=== PATIENT | female | born 1955 | race Caucasian/White ===

== ENCOUNTER 2024-12-24 10:29 | Emergency (ER) | payer MEDICARE, SELFPAY ==
[2024-12-24 10:44] VITALS: BP 185/95; PULSE 88; RESP 18; TEMP 36.6; O2SAT 98
--- NOTE | 2024-12-24 10:49 | ED_ITS ---
HPI - Female Genitourinary General Chief complaint: Urogenital-Female Stated complaint: Poss UTI Time Seen by Provider: 12/24/24 10:51 Source: patient, RN notes reviewed and old records reviewed Mode of arrival: ambulatory Limitations: no limitations History of Present Illness HPI Narrative: 69 year old female who [facility] with complaints of urinary tract symptoms of frequency burning and urgency with her urination. Patient reports that she had just completed a 5 day treatment of Macrobid but continues to have symptoms. Patient reports that she has been taking AZO.. Patient denies any flank pain or any visual blood reports that she has had past history of some UTI's. Patient reports no fevers or any nausea or vomiting or diarrhea. MD elicited complaint: UTI Pertinent past history: other (previous UTI's) Onset (ago): week(s) (over 1 week since initial symptoms started) Location of symptoms: urethra Severity: mild Vaginal discharge: none Vaginal bleeding: none Treatment prior to arrival: OTC urinary analgesics (AZO) Related Data Home Medications ?Medication ?Instructions ?Recorded ?Confirmed ?Last Taken ?Type amlodipine 5 mg tablet mg 12/24/24 Unknown History meloxicam 15 mg tablet mg 12/24/24 Unknown History methotrexate sodium 25 mg/mL mg 12/24/24 Unknown Hist ory injection solution rosuvastatin 10 mg tablet mg 12/24/24 Unknown History syringe with needle 1 mL 27 x 1/2 12/24/24 12/24/24 Unknown History (BD SafetyGlide Tuberculin Regular Bevel) Allergies Allergy/AdvReac Type Severity Reaction Status Date / Time Sulfa (Sulfonamide Allergy Mild Rash Verified 12/24/24 10:43 Antibiotics) Review of Systems Review of Systems: CONSTITUTIONAL: Denies fever, chills, or sweats. CARDIOVASCULAR: Denies chest pain, palpitations, or edema. RESPIRATORY: Denies cough or dyspnea. GASTROINTESTINAL: Denies abdominal pain, nausea, vomiting, or diarrhea. GENITOURINARY: Reports dysuria, frequency, urgency. Denies flank pain or hematuria. SKIN: Denies rash or itching. MUSCULOSKELETAL: Denies back pain or myalgia. Denies CVA tenderness NEUROLOGIC: Denies headache All systems reviewed & are unremarkable except as noted in HPI and below PMFSH Past Medical History Medical History (Updated 12/25/24 @ 08:42 by Kimberlee Hernandez NP) Arthritis Elevated cholesterol Hypertension Social History Social History (Updated 12/25/24 @ 08:42 by Kimberlee Hernandez NP) Smoking status: Current every day smoker Tobacco type: cigarettes Alcohol intake: unknown Substance use type: does not use Living arrangements: with family Gender identity (if verbalized by the patient): Female Comments At time of signature, agree with nursing past medical, surgical, social and family history. There is no relevant family history pertinent to the presenting complaint Exam Narrative: GENERAL: Well-appearing, well-nourished, and in no acute distress. HEAD: Normocephalic, atraumatic. NECK: Supple.no lymphadenopathy CHEST: Clear to auscultation. No respiratory distress.SAO2 99% on room air HEART: Regular rate and rhythm. No murmur heard. Normal peripheral pulses. ABDOMEN: Soft, nontender, nondistended, normal active bowel sounds. No CVA tenderness positive for burning with urination with urinary frequency and urgency EXTREMITIES: Normal range of motion. No edema. SKIN: Warm, dry, no rash. NEURO: No focal deficits. Alert and oriented x3. Course Course Emergency Course: Patient is aware of diagnosis, understands and agrees to treatment plan.? Anticipatory guidance given.? Patient agrees to follow-up as directed and is aware of reasons to seek care at the emergency department. Portions of this record may have been created with voice recognition software Level of Care: Express Care Visit Vital Signs Vital signs: Vital Signs Temperature 36.6 C 12/24/24 10:44 Pulse Rate 88 12/24/24 10:44 Respiratory Rate 18 12/24/24 10:44 Blood Pressure 185/95 H 12/24/24 10:44 Pulse Oximetry 98 12/24/24 10:44 Oxygen Delivery Room Air 12/24/24 10:44 Temperature 36.6 C 12/24/24 10:44 Pulse Rate 88 12/24/24 10:44 Respiratory Rate 18 12/24/24 10:44 Blood Pressure 146/83 H 12/24/24 11:17 Pulse Oximetry 98 12/24/24 10:44 Oxygen Delivery Room Air 12/24/24 10:44 reviewed MDM - Female Genitourinary MDM Narrative Medical decision making narrative: Exam findings and UA show no acute concerns or changes; patient is non-toxic appearing and is in no distress.? Patient is appropriate for outpatient treatment and follow-up. Differential Diagnosis Differential diagnosis: Likely urinary tract infection, cystitis and other (dysuria) Medical Records Attestation: I reviewed the patient's medical records. Lab Data Attestation: I reviewed the patient's lab results. Lab results narrative: Patient has taken AZO unable to do urine dip urine culture sent Critical Care Time Critical Care Time Critical Care Time: No Discharge Plan Discharge Clinical Impression: Urinary tract infection symptoms Patient Disposition: Home Condition: Stable Instructions: Antibiotic Form, Urinary Tract Infection in Women (ED) Additional Instructions: Increase fluids especially cranberry juice and water Avoid caffeine and carbonated beverages Antibiotic as directed Medicine as directed--cautioned it will cause your urine to be bright orange Tylenol/ibuprofen for pain or fever per package direction Follow-up with her primary care provider if further problems or concerns Recheck if you have fever over 101, nausea and vomiting. If your symptoms persist, change or worsen significantly before you can contact your personal physician then please, without delay, go to the emergency department for further evaluation. Follow-up with PCP in 7-10 days or sooner if needed Follow up with PCP soon in regards to your blood pressure which is elevated above threshold for referral. Blood pressure above 120/80 may indicate pre- hypertension.185/95 rechecked 146/83 Patient Language: Guyanese Prescriptions: New cephalexin 500 mg capsule 500 mg PO Q12H Qty: 14 0RF No Action meloxicam 15 mg tablet amlodipine 5 mg tablet (DME) BD SafetyGlide TB Reg Bevel 1 mL 27 x 1/2 syringe MISCELLANEOUS rosuvastatin 10 mg tablet methotrexate sodium 25 mg/mL solution Follow-up/Referrals: PHYSICIAN NOT ON STAFF,NONSTAFF [Primary Care Provider] Time of Disposition: 11:15 Quality [place] Coma Scale Eyes: Open Verbal: Oriented and Alert Motor: Follows Commands Darrel Coma Total Score: 15
[2024-12-24 11:17] VITALS: BP 146/83
== END 2024-12-24 11:26 | disposition home or self-care (01) ==
PROVIDERS: Emergency Provider Registered Nurse
DX: R30.0 Dysuria (principal); R35.0 Frequency of micturition; R39.15 Urgency of urination; F17.210 Nicotine dependence, cigarettes, uncomplicated; I10 Essential (primary) hypertension; E78.00 Pure hypercholesterolemia, unspecified; M19.90 Unspecified osteoarthritis, unspecified site
CPT/HCPCS: 87086; 99203; G0463